=== PATIENT | female | born 1945 | race Caucasian/White ===

== ENCOUNTER 2018-09-22 08:07 | Outpatient (CLI) | payer MEDICARE | END 2018-09-22 23:59 | disposition home or self-care (01) | LOC: CVU 08:07 | PROVIDERS: ATTEND Internal Medicine | DX: M79.604 Pain in right leg (principal); M79.605 Pain in left leg; R25.2 Cramp and spasm; I10 Essential (primary) hypertension | CPT/HCPCS: 93922 ==

== ENCOUNTER 2020-08-26 09:59 | Outpatient (CLI) | payer MEDICARE ==
[~2020-08-26 09:59] MED LIST: ASPI-515 PO; BUTA-177 PO; CELE200C PO; CHOL100012 PO; CLON0.1T22 PO; CYAN-10 PO; GABA300C10 PO; GABA600T7 PO; LEVO100T5 PO; LEVO75TA PO; MONT10TA96 PO; NEBI20TA2 PO; OMEG-133 PO; OMEP-110 PO; OMEP20TA62 PO; POTA10TA6 PO; SIMV20TA19 PO; VALS1TAB30 PO; VALS320T2 PO
== END 2020-08-26 23:59 | disposition home or self-care (01) ==
LOC: CFH 09:59
PROVIDERS: ATTEND Internal Medicine Cardiovascular Disease
DX: Z13.6 Encounter for screening for cardiovascular disorders (principal); I25.10 Atherosclerotic heart disease of native coronary artery without angina pectoris; R07.89 Other chest pain
CPT/HCPCS: 75571